=== PATIENT | male | born 1945 | race Caucasian/White ===

== ENCOUNTER → 2017-01-28 13:31 | Outpatient (CLI) | payer MEDICARE ==
[2015-05-15 13:08] VITALS: BMI 21.3
[~2017-01-28 13:31] MED LIST: BAYER CHEWABLE81 MG PO; COMBIVENT RESPIM4 GM INH; FLORINEF 0.1 M0.1 MG PO; HYDROCODONE-APA1 TAB PO; KLONOPIN0.5 MG PO; LEVSIN/ANASP0.125 MG PO; NEURONTIN 300300 MG PO; NEXIUM40 MG PO; NITROSTAT0.4 MG SL; SINGULAIR10 MG PO; SOMA350 MG PO; SYMBICORT 16010.2 GM INH; VOSPIRE ER4 MG PO; ZOFRAN8 MG PO
== END | disposition home or self-care (01) ==
LOC: D.RT 13:31
DX: J44.9 Chronic obstructive pulmonary disease, unspecified (principal); D80.1 Nonfamilial hypogammaglobulinemia